=== PATIENT | male | born 1985 | race Caucasian/White ===

== ENCOUNTER 2018-01-11 11:05 | Emergency (ER) | payer OTHER ==
[~2018-01-11] VITALS: Ht 175.3 cm; Wt 79.4 kg
[2018-01-11] MEDS ORDERED: Bactrim Ds Tab1 EACH PO (12:10)
[2018-01-11] MEDS ORDERED: Keflex500 MG PO (12:10)
== END 2018-01-11 12:15 | disposition home or self-care (01) ==
LOC: ER 11:05
DX: L02.512 Cutaneous abscess of left hand (principal); L02.414 Cutaneous abscess of left upper limb; F17.200 Nicotine dependence, unspecified, uncomplicated
CPT/HCPCS: 99283